=== PATIENT | male | born 1975 | race Hispanic/Latino ===

== ENCOUNTER 2024-05-29 08:51 | Emergency (ER) | payer SELFPAY ==
[~2024-05-29] VITALS: Ht 172.7 cm; Wt 56.7 kg
--- NOTE | 2024-05-29 09:24 | ERN ---
ED Note History of Present Illness Stated Complaint: RT EYE PAIN, BLURRED VISION X 2 WEEKS Chief Complaint: Eye Problems Time Seen by MD: 08:56 Dictation: Patient is a 49-year-old male with a past medical history of diabetes II, hypertension, liver disease who presents to the ED for right eye's vision changes. Patient states changes in his vision began 2 weeks ago and he describes it as a shadow over his eye. He denies any pain, dizziness, headaches, or weakness. Allergies: Coded Allergies: No Known Allergies (Unverified Allergy, Unknown, 05/29/24) Past Medical History Past Medical History: Diabetes-Type II, Hypertension, Liver Disease Surgical History: Other Surgical History Other: HERNIA Review of System Dictation Constitutional-no chills, weight loss/gain, fever Eyes-no injury, pain, redness and discharge. reduced vision on right ENT-no injury, pain, swelling Cardiovascular no chest pain, palpitations, edema Respiratory no shortness of breath, cough, wheezing Abdomen/GI-no abdominal pain, diarrhea, constipation, vomiting, nausea Back no injury and pain Genitourinary no injury, bleeding and discharge Musculoskeletal/extremities no injury, deformity Skin no rash, discoloration Neuro-no headache, weakness, numbness, tingling, seizures, tremors Psych-no suicidal ideation, homicidal ideation, hallucinations, depression, anxiety, memory loss Review of Systems: & the rest were negative. Initial Vital Sign VS Vital Signs Date Time Temp Pulse Resp B/P (MAP) Pulse Ox O2 Delivery O2 Flow Rate FiO2 05/29/24 08:53 97.9 70 16 114/72 100 Room Air 0 05/29/24 08:57 21 Physical Exam Dictation General-patient is awake alert and oriented Head/neck-normocephalic, atraumatic Eyes-PERRL, EOMI, vision reduced in right eye Neck-trachea midline, supple, no nuchal rigidity Cardiovascular-RRR, normal S1/S2, no MRG is, no JVD Respiratory-no distress, wheezing, rales, rhonchi Abdomen-no tenderness, guarding, soft, nondistended Skin warm, dry, normal turgor, no rash Musculoskeletal/extremities pulses equal, no cyanosis Neuro-COA X 4, GCS 15, strength 5/5, CN 2-12 intact Psych-normal behavior, mood and affect normal Results (Laboratory/Radiology) Laboratory/Radiology Laboratory Tests Test 05/29/24 09:53 05/29/24 09:56 Random Glucose 393 mg/dL (70-105) H Whole Blood Glucose 357 MG/DL (70-110) H ED Course ED Course Orders Procedure Category Date Status Time Glucose,Random LAB 05/29/24 Complete 09:25 Vital Signs Date Time Temp Pulse Resp B/P (MAP) Pulse Ox O2 Delivery O2 Flow Rate FiO2 05/29/24 10:03 98.1 65 16 123/69 100 Room Air* 0 21 05/29/24 08:57 97.9 70 16 114/72 100 Room Air* 0 21 05/29/24 08:53 97.9 70 16 114/72 100 Room Air 0 Medical Decision Making [facility] MDM INITIAL IMPRESSION Initial history and physical concerning for blurred vision in right eye, retinal detachment Contributing medical problems: Diabetes II, Hypertension I have reviewed the triage nursing notes and vital signs. Initial plan: tonometry, random glucose DATA REVIEW I have reviewed additional NN, repeat VS, and monitoring where indicated. Heart rate, blood pressure, and O2 saturation are acceptable. ED COURSE Interventions: None Reassessment: Not indicated DISPOSITION Final diagnostic impression: Possible retinal attachment I discussed my findings, clinical impression and treatment recommendations with the patient. My final plan for disposition was made based upon -mild risk of complications and potential morbidity of the patient's condition. -Discussion with the patient regarding management options. Patient will be discharged and advised to follow up with Ophthalmology Procedure Procedure Dictation: Tonometry to measure IOP in right eye. 14 mm Hg. DX & DISP Disposition: Discharge Departure Impression: Primary Impression: Blurry vision, right eye Additional Impression: Retinal detachment, right Condition: Stable Additional Instructions: Follow up with ophthalmology outpatient. FOLLOW-UP WITH PRIMARY CARE PROVIDER IN 1 TO 2 DAYS. TAKE MEDICATIONS DIRECTED HERE IN THE EMERGENCY ROOM. OKAY TO CONTINUE HOME MEDICATIONS UNLESS OTHERWISE DISCUSSED DURING YOUR VISIT IN THE EMERGENCY ROOM TODAY. RETURN TO YOUR NEAREST EMERGENCY ROOM IF SYMPTOMS WORSEN OR IF THERE IS NO IMPROVEMENT. CALL 911 IF YOU NEED IMMEDIATE ASSISTANCE. TAKE TYLENOL [id number] NEEDED AND IF NO CONTRAINDICATIONS ARE PRESENT. INCREASE ORAL HYDRATION. A WOUND CULTURE OR URINE CULTURE WAS ORDERED HERE IN THE EMERGENCY ROOM DEPARTMENT PLEASE FOLLOW-UP WITH PRIMARY CARE PROVIDER AND ADVISE THEM TO GET REPEAT PORTS FROM OUR FACILITY. IF YOU HAD ANY HORACE WRAP/SPLINTS THAT WERE APPLIED HERE, PLEASE DO NOT REMOVE THEM UNTIL YOU SEE YOUR PRIMARY CARE OR SPECIALTY. Time of Disposition: 09:36 I have reviewed I have reviewed the case I have examined patient I performed a substantive portion of the visit. I have reviewed and personally made and approve the management plan that is documented in the notes by myself with MARY/resident. I acknowledged full responsibility for the patient's management plan. ROBIN JENKINS MD May 29, 2024 09:24 DAKOTA SO DO May 29, 2024 15:45
[2024-05-29 10:03] VITALS: BP 123/69; PULSE 65; RESP 16; TEMP 98; O2SAT 100
== END 2024-05-29 10:15 | disposition home or self-care (01) ==
LOC: EDH 08:51
DX: H33.21 Serous retinal detachment, right eye (principal); E11.9 Type 2 diabetes mellitus without complications; I10 Essential (primary) hypertension
CPT/HCPCS: 36415; 82947; 82948; 99282; 99283